=== PATIENT | male | born 1970 | race Caucasian/White ===

== ENCOUNTER 2023-10-22 13:07 | Emergency (ER) | payer OTHER, SELFPAY ==
[2023-10-22] VITALS (60 sets, daily range): BP systolic 171–183; BP diastolic 84–109; PULSE 84–126; RESP 0–32; TEMP 36.6; O2SAT 92–100
--- NOTE | 2023-10-22 13:15 | RT.EKG_ITS ---
APPROVED REPORT Exam: Resting ECG Reason for Exam: epigastric pain Patient Location: E HR:94 bpm ECG Measurements Heart Rate 94 AXIS OR 154 P 45 QRSd 92 QRS 39 QT 366 T 29 QTc 459 Conclusion Sinus rhythm...normal P axis, V-rate 60- 99 sinus rhtyhm, normal axis, normal intervals, non ischemic
--- NOTE | 2023-10-22 13:25 | DI.CT_ITS ---
Exam(s) CT ABDOMEN PELVIS W EXAM: CT ABDOMEN PELVIS W CLINICAL HISTORY: epigastric abd pain nausea vomiting. TECHNIQUE: Imaging Protocol: Axial computed tomography images with coronal and sagittal reformatted images were created and reviewed CONTRAST MATERIAL: Intravenous: Omnipaque 350 Contrast volume:100 ml Oral: / no COMPARISON: No exams were available for comparison FINDINGS: ABDOMEN and PELVIS: Lung Bases: Lungs are clear. Abnormal diffuse wall thickening of the distal esophagus. No hiatal he rnia visible. Clinic indicate esophagitis. Liver: Normal density. No measurable mass. Gallbladder and biliary tract: Single gallstone noted. No abnormal thickening or biliary dilatation. Pancreas: Normal density. No abnormal calcifications or inflammatory process. No evidence of mass. Spleen: Normal. Kidneys: Normal size, contour and axis. No radiodense stones. No obstructive uropathy. No suspicious masses seen. Adrenal glands: No masses seen. Vasculature: Abdominal aorta non-dilated. Soft tissues: Unremarkable. Bladder: Mild wall thickening. No calculi.No focal mass. Bowel: No obstruction. No bowel wall thickening. Appendix normal. Peritoneal cavity: No ascites. No focal collection or mesenteric inflammatory response. Bones: Unremarkable for age. Reproductive organs: Prostate enlarged, impressing on the base of the bladder. Lymph nodes: Unremarkable. IMPRESSION:: Distal esophageal wall thickening, consistent with esophagitis. Findings called to Dr. Valadez of the emergency department. RADIATION DOSE DELIVERED: 1,014.46mGy.cm Total DLP DATA REPOSITORY: All CT scans at this facility are submitted to the National Radiology Data Registry (NRDR) Dose Index Registry (DIR) with the [employer] ([employer]). RADIATION OPTIMIZATION: All CT scans at this facility use at least one of these dose optimization te chniques: automated exposure control; mA and/or kV adjustment per patient size (includes targeted exa ms where dose is matched to clinical indication); or iterative reconstruction.
[2023-10-22 13:31] LABS: Abs Immature Grans 0.11 10^3/uL (0.0-0.06); Absolute Basophil Count 0.04 10^3/uL (0.0-0.2); Absolute Lymphocyte Count 1.43 10^3/uL (1.2-3.4); BE (Venous) 2 mmol/L (-2-3); Basophils % 0.2 %; Eosinophils % 0.6 %; HCO3 (Venous) 25 mmol/L (23-28); HCT 49.2 % (40.0-50.0); HGB 16.5 g/dL (13.5-17.5); Immature Grans % 0.6 %; Lymphocytes % 7.2 %; MCH 29.6 pg (27.0-33.0); MCHC 33.5 % (32.0-36.0); MCV 88 fL (80-95); MPV 9.2 fL (8.0-11.0); Monocytes % 3.4 %; O2 Sat (Venous) 93 %; Platelet Count 228 10^3/uL (130-400); RBC 5.57 10^6/uL (4.36-5.78); RDW 12.9 % (11.8-14.1); RDW-SD 41.6 fL; TCO2 (Venous) 21 mmol/L (24-29); WBC 19.83 10^3/uL (4.4-10.8); pCO2 (Venous) 31 mmHg (41-51); pH (Venous) 7.52 (7.31-7.41); pO2 (Venous) 59 mmHg
[2023-10-22 13:33] LABS: Absolute Eosinophil Count 0.12 10^3/uL (0.0-0.7); Absolute Monocyte Count 0.67 10^3/uL (0.1-0.8); Absolute Neutrophil Count 17.45 10^3/uL (1.2-6.7)
--- NOTE | 2023-10-22 13:34 | ED.GENADUL_ITS ---
Discharge Plan Disposition Patient Disposition: Home Condition: Improving Discharge Details Chief Complaint: Nausea/Vomit/Diar Clinical Impression: Esophagitis ED Provider: David Valadez Discharge Instructions Instructions: Esophagitis (ED) HPI General Date/Time Provider Initiated Documentation: 10/22/23 13:11 . HPI Narrative: 52-year-old male history of diabetes, on metformin, presents with over 1 day of nausea vomiting and epigastric abdominal discomfort. Related Data Allergies Allergy/AdvReac Type Severity Reaction Status Date / Time No Known Allergies Allergy Unverified 10/22/23 13:15 General Stated Complaint: Nausea/Vomit/Diar WILLY: 3 Review of Systems Narrative: Review of Systems Constitutional: negative Eyes: negative ENT: negative Cardiovascular: negative Respiratory: negative Gastrointestinal: Nausea vomiting epigastric discomfort : negative Musculoskeletal: negative Skin: negative Neurologic: negative Psych: negative Exam Narrative Exam Narrative: Physical Examination General: alert, awake HEENT: normocephalic, atraumatic; PERRL, EOM intact, conjunctiva normal; no nasal discharge; slight drying of oral mucosa Neck: supple, trachea midline; full ROM Chest: normal to inspection Respiratory: normal respiratory effort, speaking in full sentences, clear to auscultation, no wheezing, rales or rhonchi Cardiac: regular rate, regular rhythm, S1S2 intact, no murmurs rubs or gallops GI: abdomen soft, non-tender, non-distended; no palpable mass or hepatosplenomegaly Skin: no lesions, rashes or trauma appreciated Neuro: AAOx3, normal speech, moving all extremities Psych: Appropriate mood and affect Course Vital Signs Vital signs: Vital Signs Temperature 36.6 C 10/22/23 13:12 Pulse 98 H 10/22/23 13:12 Respiratory Rate 20 10/22/23 13:12 Blood Pressure 183/84 H 10/22/23 13:12 Pulse Oximetry 99 10/22/23 13:12 Temperature 36.6 C 10/22/23 13:12 Temperature Source Skin 10/22/23 13:12 Pulse 98 H 10/22/23 13:12 Respiratory Rate 20 10/22/23 13:12 Respiratory Effort Normal, Non-Labored 10/22/23 13:15 Blood Pressure 183/84 H 10/22/23 13:12 Blood Pressure Position Sitting 10/22/23 13:12 Pulse Oximetry 99 10/22/23 13:12 Oxygen Delivery Method Room Air 10/22/23 13:12 Oxygen Flow Rate 0 10/22/23 13:12 Pain Level 8 10/22/23 13:12 Lab/Test Results Lab/Test Results: Laboratory Tests Range/Units 10/22/23 13:22 WBC (4.4-10.8) 10^3/uL 19.83 H RBC (4.36-5.78) 10^6/uL 5.57 Hgb (13.5-17.5) g/dL 16.5 Hct (40.0-50.0) % 49.2 MCV (80-95) fL 88 MCH (27.0-33.0) pg 29.6 MCHC (32.0-36.0) % 33.5 RDW (11.8-14.1) % 12.9 Plt Count (130-400) 10^3/uL 228 MPV (8.0-11.0) fL 9.2 Immature Gran % % 0.6 Neutrophils % % 88.0 Lymphocytes % % 7.2 Monocytes % % 3.4 Eosinophils % % 0.6 Basophils % % 0.2 Nucleated RBC % (0.0-0.3) % 0.0 Absolute Neutrophils (1.2-6.7) 10^3/uL 17.45 H Absolute Lymphocytes (1.2-3.4) 10^3/uL 1.43 Absolute Monocytes (0.1-0.8) 10^3/uL 0.67 Absolute Eosinophils (0.0-0.7) 10^3/uL 0.12 Absolute Basophils (0.0-0.2) 10^3/uL 0.04 VBG pH (7.31-7.41) 7.52 H VBG pCO2 (41-51) mmHg 31 L VBG pO2 mmHg 59 VBG HCO3 (23-28) mmol/L 25 VBG Total CO2 (24-29) mmol/L 21 L VBG O2 Saturation % 93 VBG Base Excess (-2-3) mmol/L 2 Medical Decision Making 52-year-old male history of diabetes presents with epigastric discomfort nausea vomiting over the last day, slight drying of oral mucosa on examination, afebrile nonperitoneal, consider viral gastroenteritis versus colitis versus enteritis versus early cholecystitis versus appendicitis versus pancreatitis must also consider DKA lower suspicion for UTI or nephrolithiasis, must also consider atypical ACS however no chest pain or shortness of breath and EKG is normal sinus rhythm normal axis nonischemic. Screening labs VBG urinalysis CT abdomen pelvis fluids antiemetics analgesia close reassessment 16: 05 evidence of esophagitis on CT scan, patient resting much more comfortably after medication and GI cocktail. Home care instructions and return precautions given Quality:SDOH Health Related Social Needs: No Data to Display PFSH All Active Problems (Updated 10/22/23 @ 16:06 by David Valadez MD) Esophagitis (Acute) Social History Smoking/Tobacco Use Status: Never Smoking risk assessment performed?: Yes Alcohol Intake: current Alcohol Intake frequency: 0-2 drinks per day Drug use: Never Substance use type: does not use
[2023-10-22 13:49] LABS: ALT 24 U/L (16-63); AST 13 U/L (15-37); Alkaline Phosphatase 111 U/L (46-116); Anion Gap 12.7 mmol/L (3-11); BUN 30 mg/dL (7-18); Bilirubin, Total 1.8 mg/dL (0.2-1.0); CO2 25.3 mmol/L (21.0-32.0); Calcium 9.4 mg/dL (8.5-10.1); Chloride 98 mmol/L (98-107); Estimated GFR 90.56 (mL/min/1.73m2); Glucose 228 mg/dL (74-106); Lipase 30 U/L (16-77); Sodium 136 mmol/L (136-145); Total Protein 7.6 g/dL (6.4-8.2)
[2023-10-22] MEDS: Famotidine 20 MG/2 ML VIAL IVP (13:52)
[2023-10-22] MEDS: Ondansetron 4 MG/2 ML VIAL IVP (13:52)
[2023-10-22] MEDS: Normal Saline 1,000 ML 1000 ML IV (13:52)
[2023-10-22] MEDS: ACETAMINOPHEN 1,000 MG/100 ML BTL 400 MG IVPB (13:52)
[2023-10-22 15:00] LABS: COVID-19 PCR Negative (Negative); Influenza A PCR Negative (Negative); Influenza B PCR Negative (Negative); RSV PCR Negative (Negative)
[2023-10-22] MEDS: LORazepam 2 MG/ML VIAL 1 MG IVP (15:05)
[2023-10-22] MEDS: Normal Saline - Diluent 50 ML VIAL IJ (15:06)
[2023-10-22] MEDS: Omnipaque 350 MG/ML 100 ML BTL IJ (15:07)
[2023-10-22 15:10] LABS: Bilirubin Negative (Negative); Blood Trace-lysed (Negative); Clarity Clear (Clear); Glucose 500 mg/dL (Negative); Ketones 80 mg/dL (Negative); Leukocyte Esterase Negative (Negative); Nitrite Negative (Negative); Specific Gravity 1.025 (1.005-1.025); Urobilinogen 0.2 mg/dL (Up to 0.2)
[2023-10-22 15:30] LABS: Bacteria Negative HPF (Negative); C & S Indicated? No; Crystals Negative HPF (Negative); Epithelial Cells Rare HPF (Negative); Mucus Negative (Negative); WBC 0-2 HPF (0-5)
[2023-10-22] MEDS: Lidocaine 2% Viscous 15 ML CUP (15:44)
[2023-10-22 15:47] LABS: Source Nasopharynx
== END 2023-10-22 16:45 | disposition home or self-care (01) ==
LOC: ER 16:43
PROVIDERS: Emergency Provider Emergency Medicine
DX: R10.13 Epigastric pain (principal); K20.90 Esophagitis, unspecified without bleeding; E11.9 Type 2 diabetes mellitus without complications; Z79.84 Long term (current) use of oral hypoglycemic drugs
CPT/HCPCS: 80053; 82805; 82962; 83690; 87637; 93005; 96365; 99285; 74177; 81003; 81015; 83735; 85025; 93010; 99284; J0131; J2060; J2405; J3490

== ENCOUNTER 2023-10-25 17:21 | Emergency (ER) | payer OTHER, SELFPAY ==
[2023-10-25 17:29] VITALS: BP 137/78; PULSE 109; RESP 16; TEMP 36.9; O2SAT 95
--- NOTE | 2023-10-25 17:30 | RT.EKG_ITS ---
APPROVED REPORT Exam: Resting ECG Reason for Exam: vomiting Patient Location: E HR:89 bpm ECG Measurements Heart Rate 89 AXIS ID 143 P 35 QRSd 91 QRS 5 QT 377 T -1 QTc 460 Conclusion Sinus rhythm...normal P axis, V-rate 60- 99 Probable left atrial enlargement...P >50mS, <-0.10mV V1 Physician: no stemi, mild st flattening in anterior leads
--- NOTE | 2023-10-25 17:46 | ED.GENADUL_ITS ---
Discharge Plan Disposition Patient Disposition: Home Condition: Good Discharge Details Clinical Impression: Acute dehydration, Nausea & vomiting, Hypokalemia Primary Care Provider: [facility] ED Provider: Aime Sanchez Home Meds and New Rx's Prescriptions: New ondansetron 4 mg tablet,disintegrating 4 mg PO Q8H Qty: 20 0RF No Action glipizide 5 mg tablet extended release 24hr 5 mg PO BID atorvastatin 10 mg tablet 10 mg PO DAILY Jardiance 25 mg tablet 25 mg PO DAILY metformin 500 mg tablet extended release 24 hr 500 mg PO DAILY bupropion HCl (smoking deter) 150 mg tablet extended release 12 hr 150 mg PO DAILY Patient Comments: TAKE 1 TABLET BY MOUTH TWICE A DAY fluoxetine 20 mg capsule 20 mg PO DAILY Patient Comments: TAKE 2 CAPSULES BY MOUTH EVERY DAY Discharge Instructions Instructions: Hypokalemia (ED), Acute Nausea and Vomiting (ED) Additional Instructions: At this time you have been rehydrated, your vital signs of stabilized. Please take the Zofran as needed for nausea. Please stick with a liquid diet for the next 24 to 48 hours, taking small frequent sips. You can then transition to small bites of crackers and bananas and applesauce after that. Please stick with a diet high in potassium once you do resume your normal diet. Please stay well-hydrated. If you notice any worsening of your symptoms, or any new symptoms such as vomiting, diarrhea, fever, chills, shortness of breath, chest pain, numbness, weakness, or fainting , please return immediately to the emergency department for reevaluation. Please follow up with your primary care provider as soon as possible for reassessment and reevaluation. As always, it was a pleasure participating in your medical care today. HPI General Date/Time Provider Initiated Documentation: 10/25/23 17:23 . HPI Narrative: [id number]-year-old male with a past medical history of type 2 diabetes, high cholesterol, who presents today for evaluation of vomiting. Patient developed vomiting about 6 days ago, vomiting multiple times per day. He admits to mild epigastric achiness. He was seen 3 days ago, he was rehydrated, labs were fine, CT scan was unremarkable. He felt much better and was subsequently discharged. Unfortunately a few hours after that he began vomiting again, and has continued to vomit for the last 2 days. He has not been able to keep any of his medications down. He denies any current blood in his vomitus. He denies any more diarrhea. He denies any chest pain shortness of breath. No other complaints at this time. No alcohol intake. Related Data Home Medications Medication Instructions Recorded Confirmed atorvastatin 10 mg tablet 10 mg PO DAILY 10/25/23 10/25/23 bupropion HCl (smoking deter) 150 150 mg PO DAILY 10/25/23 10/25/23 mg tablet,12 hr sustained-release(smoking deterrent) empagliflozin 25 mg tablet 25 mg PO DAILY 10/25/23 10/25/23 (Jardiance) fluoxetine 20 mg capsule 20 mg PO DAILY 10/25/23 10/25/23 glipizide 5 mg tablet, extended 5 mg PO BID 10/25/23 10/25/23 release 24 hr metformin 500 mg tablet,extended 500 mg PO DAILY 10/25/23 10/25/23 release 24 hr ondansetron 4 mg disintegrating 4 mg PO Q8H #20 tabs 10/25/23 tablet Previous Rx's Medication Instructions Recorded ondansetron 4 mg disintegrating 4 mg PO Q8H #20 tabs 10/25/23 tablet Allergies Allergy/AdvReac Type Severity Reaction Status Date / Time No Known Allergies Allergy Unverified 10/25/23 17:25 General Stated Complaint: Abd Prob WILLY: 3 Review of Systems All systems reviewed & are unremarkable except as noted in HPI and below Exam Narrative Exam Narrative: 1.Const: Well-nourished, Well-developed, appearing stated age 2.Eyes: PERRL, no conjunctival injection, and symmetrical lids. 3.ENT: Atraumatic external nose and ears. Notably dry MM. Neck: Symmetric, trachea midline, No thyromegaly. Mild hoarse voice, which the patient states is just only slightly worse than baseline. 4.CVS: +S1/S2, No murmurs or gallops. Peripheral pulses 2+ and equal in all extremities. Brisk capillary refill in all extremities. 5.RESP: Unlabored respiratory effort. Clear to auscultation bilaterally. No wheezes rales or rhonchi 6.GI: Soft, Nontender/Nondistended, No hepatosplenomegaly. No guarding or rebound. No pain to McBurney's point, negative Jaime sign. Mild generalized achiness throughout but no focal pain. 7.MSK: Normocephalic/Atraumatic, Extremities w/o deformity or ttp No cyanosis or clubbing, Normal movement of all extremities 8.Skin: Warm, Dry. No rashes or lesions. 9.Neuro: database report writer II-XII grossly intact. Sensation grossly intact, no focal neurologic deficits. 10.Psych: (AAO) x3. Appropriate mood and affect Course Vital Signs Vital signs: Vital Signs Temperature 36.9 C 10/25/23 17:29 Pulse 109 H 10/25/23 17:29 Respiratory Rate 16 10/25/23 17:29 Blood Pressure 137/78 10/25/23 17:29 Pulse Oximetry 95 10/25/23 17:29 Temperature 36.9 C 10/25/23 17:29 Temperature Source Temporal Artery Scan 10/25/23 17:29 Pulse 109 H 10/25/23 17:29 Respiratory Rate 16 10/25/23 17:29 Blood Pressure 137/78 10/25/23 17:29 Blood Pressure Position Sitting 10/25/23 17:29 Pulse Oximetry 95 10/25/23 17:29 Oxygen Delivery Method Room Air 10/25/23 17:29 Oxygen Flow Rate 0 10/25/23 17:29 Pain Level 9 10/25/23 17:29 Medical Decision Making [id number]-year-old male with a past medical history of type 2 diabetes, high cholesterol, who presents today for evaluation of vomiting. Patient developed vomiting about 6 days ago, vomiting multiple times per day. He admits to mild epigastric achiness. He was seen 3 days ago, he was rehydrated, labs were fine, CT scan was unremarkable. He felt much better and was subsequently discharged. Unfortunately a few hours after that he began vomiting again, and has continued to vomit for the last 2 days. He has not been able to keep any of his medications down. He denies any current blood in his vomitus. He denies any more diarrhea. He denies any chest pain shortness of breath. No other complaints at this time. No alcohol intake. Exam demonstrates dry mucous membranes, mild Abdominal achiness but no focal pain. No pain to McBurney's point, negative Jaime sign. Suspect notable dehydration, concern for the diabetic component. Will rehydrate, evaluate for electrolyte abnormalities. With a negative recent CT scan and the notably benign appearing abdomen at this time I do not see any indication for emergent reimaging. Will rehydrate treat with antiemetics, monitor closely and reassess. 10:41 PM Laboratory workup returned, mild white count at 16 which is actually an improvement from when he was here 3 days ago from his original value of 19. No bandemia. VBG shows no acidosis. No anion gap, electrolytes stable aside from low potassium at 3.5. Glucose 200, bilirubin 1.4 which is down from the prior 1.9. Lipase normal, troponin normal, EKG stable. Urinalysis shows no ketones. No evidence of infection. Patient was rehydrated with 2 L of LR, he is tolerated p.o., he was given 20 mEq of IV potassium, is tolerated all this very well. On reassessment he feels much better after Zofran antiemetics and fluid. I discussed with him continued observation, admission or discharge. Patient is requesting to go home. He feels much better and after p.o. trial that was succe ssful I do feel that this is reasonable. Patient stable for discharge. Will give Zofran for home use. Recommend bland diet, fluids, and close follow- up/return if his symptoms worsen. Discussed red flags which return. I have extensively reviewed the treatment plan and discharge instructions with the patient and their family. I have addressed all patient concerns at this time. The patient and family was made aware of what symptoms to monitor for that would warrant a return to the emergency department. Discussed the plan with the patient and family, they demonstrate verbal understanding and agreement with our assessment and plan at this time. The documentation in this chart was dictated using [employer] dictation software. Please excuse any dictation errors. Quality:SDOH Health Related Social Needs: No Data to Display [facility] All Active Problems (Updated 10/25/23 @ 22:19 by Aime Sanchez DO) Hypokalemia (Acute) Nausea & vomiting (Acute) Acute dehydration (Acute) Esophagitis (Acute) Social History Smoking/Tobacco Use Status: Never Smoking risk assessment performed?: Yes Alcohol Intake: current Alcohol Intake frequency: 0-2 drinks per day Drug use: Never Substance use type: does not use Housing: house
[2023-10-25 17:58] LABS: BE (Venous) 3 mmol/L (-2-3); HCO3 (Venous) 26 mmol/L (23-28); O2 Sat (Venous) 96 %; TCO2 (Venous) 22 mmol/L (24-29); pCO2 (Venous) 34 mmHg (41-51); pH (Venous) 7.51 (7.31-7.41); pO2 (Venous) 68 mmHg
[2023-10-25 17:59] VITALS: BP 179/93; PULSE 88; RESP 18; O2SAT 97
[2023-10-25 18:00] LABS: Abs Immature Grans 0.05 10^3/uL (0.0-0.06); Absolute Lymphocyte Count 2.38 10^3/uL (1.2-3.4); Absolute Monocyte Count 1.69 10^3/uL (0.1-0.8); Basophils % 0.2 %; Eosinophils % 0.4 %; HCT 46.8 % (40.0-50.0); HGB 16.2 g/dL (13.5-17.5); Immature Grans % 0.3 %; Lymphocytes % 14.8 %; MCH 29.7 pg (27.0-33.0); MCHC 34.6 % (32.0-36.0); MCV 86 fL (80-95); MPV 9.2 fL (8.0-11.0); Monocytes % 10.5 %; Neutrophils % 73.8 %; Platelet Count 255 10^3/uL (130-400); RBC 5.46 10^6/uL (4.36-5.78); RDW 12.2 % (11.8-14.1); RDW-SD 38.1 fL; WBC 16.07 10^3/uL (4.4-10.8)
[2023-10-25 18:03] LABS: Absolute Basophil Count 0.03 10^3/uL (0.0-0.2); Absolute Eosinophil Count 0.06 10^3/uL (0.0-0.7); Absolute Neutrophil Count 11.86 10^3/uL (1.2-6.7)
[2023-10-25] MEDS: Lactated Ringers 1,000 ML 1000 ML IV ×2 (18:16→20:07)
[2023-10-25 18:17] LABS: Diff Comment Diff Reviewed; RBC Morphology Normal
[2023-10-25] MEDS: Ondansetron 4 MG/2 ML VIAL IVP ×2 (18:17→22:33)
[2023-10-25] MEDS: Lidocaine 2% Viscous 15 ML CUP (18:17)
[2023-10-25 18:19] LABS: ALT 20 U/L (16-63); AST 10 U/L (15-37); Albumin 3.4 g/dL (3.4-5.0); Alkaline Phosphatase 103 U/L (46-116); Anion Gap 10.7 mmol/L (3-11); BUN 16 mg/dL (7-18); Bilirubin, Total 1.4 mg/dL (0.2-1.0); CO2 26.3 mmol/L (21.0-32.0); CREATININE 0.8 mg/dL (0.70-1.30); Calcium 8.7 mg/dL (8.5-10.1); Chloride 97 mmol/L (98-107); Estimated GFR 106.48 (mL/min/1.73m2); Glucose 201 mg/dL (74-106); Lipase 39 U/L (16-77); Magnesium 2.1 mg/dL (1.8-2.4); Potassium 3.3 mmol/L (3.5-5.1); Sodium 134 mmol/L (136-145); Total Protein 7.1 g/dL (6.4-8.2); Troponin I < 50 ng/L (< or =60)
[2023-10-25 18:43] LABS: Bilirubin Negative (Negative); Blood Trace-intact (Negative); Clarity Clear (Clear); Glucose 500 mg/dL (Negative); Ketones 40 mg/dL (Negative); Leukocyte Esterase Negative (Negative); Nitrite Negative (Negative); Specific Gravity 1.015 (1.005-1.025); Urobilinogen 0.2 mg/dL (Up to 0.2); pH 6.5 (5-8)
[2023-10-25 18:50] LABS: Bacteria Rare HPF (Negative); C & S Indicated? No; Crystals Negative HPF (Negative); Epithelial Cells Few HPF (Negative); Mucus Trace (Negative)
[2023-10-25] MEDS: POTASSIUM CHLORIDE 20 MEQ/100 ML BAG 50 MEQ IVINF (19:08)
[2023-10-25] MEDS: Ketorolac 15 MG/ML VIAL IVP (19:32)
[2023-10-25] MEDS: Prochlorperazine 10 MG/2 ML VIAL IVP (19:32)
[2023-10-25] MEDS: ACETAMINOPHEN 1,000 MG/100 ML BTL 400 MG IVPB (19:33)
[2023-10-25 20:10] VITALS: BP 152/85; PULSE 65; RESP 18; O2SAT 98
[2023-10-25 21:12] LABS: Troponin I < 50 ng/L (< or =60)
--- NOTE | 2023-10-25 21:49 | NUR.NOTE ---
report and transfer of care given to PERLA Uriostegui
[2023-10-25] MEDS: Ondansetron O.D.T. 4 MG TABEF, 3 TABS/BTL PO (22:33)
[2023-10-25 22:39] VITALS: BP 160/90; PULSE 90; RESP 14; O2SAT 100
== END 2023-10-25 22:40 | disposition home or self-care (01) ==
PROVIDERS: Emergency Provider Student in an Organized Health Care Education/Training Program
DX: R86.0 Abnormal level of enzymes in specimens from male genital organs (principal); R11.2 Nausea with vomiting, unspecified; E87.6 Hypokalemia; E11.9 Type 2 diabetes mellitus without complications; Z79.84 Long term (current) use of oral hypoglycemic drugs
CPT/HCPCS: 36415; 80053; 82805; 83690; 93005; 96361; 96365; 96366; 96368; 96375; 99284; 81003; 81015; 83735; 84484; 85025; 93010; J0131; J0780; J1885; J2405; J3480